=== PATIENT | male | born 1970 | race Caucasian/White ===

== ENCOUNTER 2017-06-20 00:17 | Emergency (ER) | payer BC, MEDICAID ==
[~2017-06-20] VITALS: Ht 172.7 cm; Wt 78.0 kg
[~2017-06-20 00:17] MED LIST: ACET500C5 PO; HYDR-3498 PO; IBUP800T25 PO
[2017-06-20 00:48] VITALS: Ht 172.7 cm; Wt 78.0 kg
[2017-06-20] MEDS ORDERED: morphine 4 MG/ML VIAL IV STA (01:29)
[2017-06-20] MEDS ORDERED: KETOROLAC 15 MG INJ IV STA (01:29)
[2017-06-20] MEDS ORDERED: ONDANSETRON 4 MG INJ IV STA (01:29)
[2017-06-20] MEDS ORDERED: SOD CHLORIDE 0.9% 1,000 ML IV STA (01:29)
--- NOTE | 2017-06-20 01:29 | ERD ---
ER Documentation Chief Complaint Chief Complaint BIB RA FROM HOME FOR BILATERAL FLANK PAIN, KIDNEY STONES BOTH SIDES (PRETTY,MOOK) HPI 47-year-old male patient presents to emergency department for bilateral flank pain , hx of kidney stones pt has had intermitted pain since 2014. pain 06/08 since yesterday (PRETTY,MOOK) ROS All systems reviewed and are negative except as per history of present illness. (PRETTY,MOOK) Medications Home Meds Active Scripts Hydrocodone/Acetaminophen (Reydon 5-325 Tablet) 1 Each Tablet, 1 TAB PO Q6H Y for PAIN, #7 TAB Prov:PRETTY,MOOK 06/20/17 Tramadol HCl (Tramadol HCl) 50 Mg Tablet, 50 MG PO Q8 Y for PAIN, #20 TAB Prov:PRETTY,MOOK 06/20/17 Metformin* (Glucophage*) 500 Mg Tab, 500 MG PO BID, #20 TAB Prov:PRETTY,MOOK 06/20/17 Acetaminophen* (Tylophen*) 500 Mg Capsule, 1 CAP PO Q6H Y for PAIN AND OR ELEVATED TEMP, #30 CAP Prov:SALTY SUMMERS-C 02/03/16 Ibuprofen* (Motrin*) 800 Mg Tab, 800 MG PO Q6, #30 TAB Prov:SALTY SUMMERS PA-C 16 Hydrocodone Bit-Acetaminophen* (Reydon*) 5-325 Mg Tab, 1 TAB PO Q6 Y for PAIN, # 10 TAB Prov:SALTY SUMMERS PA-C 02/03/16 Allergies Allergies: Coded Allergies: No Known Allergy (Verified Allergy, Unknown, 10/24/08) PMhx/Soc Medical and Surgical Hx: pt denies Medical Hx, pt denies Surgical Hx History of Surgery: No Anesthesia Reaction: No Hx Neurological Disorder: No Hx Respiratory Disorders: No Hx Cardiac Disorders: No Hx Psychiatric Problems: No Hx Miscellaneous Medical Probl: Yes (DM no meds does not check blood glucose) Hx Alcohol Use: No Hx Substance Use: No Hx Tobacco Use: Yes Smoking Status: Current every day smoker (PRETTY,MOOK) Physical Exam Vitals Vital Signs Date Time Temp Pulse Resp B/P Pulse Ox O2 Delivery O2 Flow Rate FiO2 06/20/17 00:48 98.5 100 18 138/77 100 (KENDELL WAGNER MD) Physical Exam Const: Well-nourished well-appearing well-hydrated 47-year-old male patient obvious discomfort no acute distress Head: Eyes: ENT: Normal External Ears, Nose and Mouth mucous membranes moist. Neck: Resp: Clear to auscultation bilaterally, no rales wheezes or rhonchi Cardio: Regular rate and rhythm, no murmurs Abd: Soft, non tender, non distended. Positive CVA tenderness Skin: Back: No midline or flank tenderness Ext: Neur: Awake and alert Psych: Normal Mood and Affect (PRETTY,MOOK) Result Diagram: 06/20/17 01506/20/17 015 Results 24 hrs Laboratory Tests Test 06/20/17 01:50 White Blood Count 7.710^3/ul Red Blood Count 4.5510^6/ul Hemoglobin 14.8g/dl Hematocrit 43.4% Mean Corpuscular Volume 95.4fl Mean Corpuscular Hemoglobin 32.5pg Mean Corpuscular Hemoglobin Concent 34.1g/dl Red Cell Distribution Width 12.1% Platelet Count 27004^3/UL Mean Platelet Volume 11.1fl Neutrophils % 43.2% Lymphocytes % 44.5% Monocytes % 6.4% Eosinophils % 5.3% Basophils % 0.5% Nucleated Red Blood Cells % 0.0/100WBC Neutrophils # 3.310^3/ul Lymphocytes # 3.410^3/ul Monocytes # 0.510^3/ul Eosinophils # 0.410^3/ul Basophils # 0.010^3/ul Nucleated Red Blood Cells # 0.010^3/ul Urine Color YELLOW Urine Clarity CLEAR Urine pH 5.0 Urine Specific [place] 1.033 Urine Ketones 1+mg/dL Urine Nitrite NEGATIVEmg/dL Urine Bilirubin NEGATIVEmg/dL Urine Urobilinogen 2+mg/dL Urine Leukocyte Esterase NEGATIVELeu/ul Urine Hemoglobin NEGATIVEmg/dL Urine Glucose 3+mg/dL Urine Total Protein NEGATIVEmg/dl Sodium Level 140mmol/L Potassium Level 3.7mmol/L Chloride Level 100mmol/L Carbon Dioxide Level 22mmol/L Anion Gap 22 Blood Urea Nitrogen 17mg/dl Creatinine 0.76mg/dl Glucose Level 244mg/dl Calcium Level 9.2mg/dl Total Bilirubin 0.1mg/dl Direct Bilirubin 0.00mg/dl Indirect Bilirubin 0.1mg/dl Aspartate Amino Transf (AST/SGOT) 79IU/L Alanine Aminotransferase (ALT/SGPT) 149IU/L Alkaline Phosphatase 115IU/L Total Protein 7.7g/dl Albumin 4.5g/dl Globulin 3.20g/dl Albumin/Globulin Ratio 1.40 Lipase 237U/L Current Medications Medications (Trade) Dose Ordered Sig/Odette Route PRN Reason Start Time Stop Time Status Last Admin Dose Admin Sodium Chloride (NS) 1,000 ml @ 1,000 mls/hr Q1H STAT IV 06/20/17 01:29 06/20/17 02:28 DC 06/20/17 01:50 Morphine Sulfate (morphine) 4 mg ONCE STAT IV 06/20/17 01:29 06/20/17 01:32 DC 06/20/17 01:49 Ondansetron HCl (Zofran Inj) 4 mg ONCE STAT IV 06/20/17 01:29 06/20/17 01:32 DC 06/20/17 01:49 Ketorolac Tromethamine (Toradol) 15 mg ONCE STAT IV 06/20/17 01:29 06/20/17 01:32 DC 06/20/17 01:49 Hydromorphone HCl (Dilaudid) 0.5 mg ONCE STAT IV 06/20/17 02:45 06/20/17 02:46 DC 06/20/17 02:48 (KENDELL WAGNER MD) Procedures/MDM PROCEDURE: CT of the abdomen and pelvis without contrast CLINICAL INDICATION: Flank pain. TECHNIQUE: Spiral CT images through the abdomen and pelvis without the use of oral and without the use of intravenous contrast. The administered radiation dose is CTDI 8.89 and DLP 554.73. One or more of the following dose reduction techniques were used: automated exposure control, adjustment of the mA and/or kV according to patient size, or use of iterative reconstruction technique. COMPARISON: 10/25/2008 FINDINGS: The study is limited by lack of intravenous contrast. Lower thorax: Slight dependent atalectasis of the lung bases is seen.. Liver: The liver is unremarkable in appearance. Biliary: The gallbladder is unremarkable.. No biliary ductal dilatation is seen. Pancreas: Unremarkable. No focal mass or inflammatory process. Spleen: The spleen is unremarkable in appearance Adrenal glands: Unremarkable in appearance. No focal nodule.. Genitourinary: There are multiple 1-2 mm nonobstructing bilateral renal calyceal stones. No hydronephrosis is seen. No definite ureter or bladder stones.. The bladder is unremarkable in appearance.. Gastrointestinal Tract: There is no evidence for bowel obstruction, free air, or abscess. The appendix is unremarkable in appearance. Moderate stool burden. Lymph nodes: Small low-density lymph nodes are seen in the periportal region.. Vascular structures: Slight aortic and coronary artery calcification.. Peritoneal cavity: Unremarkable mesentery and peritoneum.. No mass, edema, or ascites. Reproductive Organs: Unremarkable in appearance.. Musculoskeletal: There is mild degenerative change of the spine. IMPRESSION: Small nonobstructing bilateral renal stones. No definite ureter or bladder stones.. Ewa Oliveira, Physician Date Time This 47-year-old male patient presents to emergency room for evaluation of bilateral flank pain, patient has history of bilateral kidney stones since 2014 , usually pain is controlled with conservative measures, patient reports pain is been 10 out of 10 for the last 24 hours. Denies nausea or vomiting, reports change in urine stream, denies hematuria, fever or chills. Emergency room course includes history and physical exam positive for CVA tenderness, suspected change in nephrolithiasis. Patient treated with serology, no evidence of infection or acute blood loss, no evidence of renal insufficiency. Glucose abnormal nonfasting at 244. Urinalysis negative for evidence of leukocytosis or nitrates, positive for +3 glucose, patient given a liter of normal saline, 15 mg of Toradol with sub-adequate pain control 0.5 mg of Dilaudid given. Patient reports improvement of symptoms, patient given Zofran for nausea, and CT of abdomen and pelvis for flank pain with radiologist's impression of small nonobstructing bilateral renal stones no definite urinary or or bladder stone. Plan to discharge patient home with pain control, elevated blood sugar discussed with supervising physician Dr. Wagner patient has no primary care physician plan to start metformin 500 mg twice daily, tramadol 50 mg 3 times daily as needed pain. Reydon 5/325 count of 7, increase fluids, increase rest, diabetic teaching information provided and handout along with primary care physicians. Schedule appointment as soon as possible, return to emergency department if symptoms fail to improve as anticipated, pain not improving with treatment. Patient is stable with no new complaints during ER course, clinically there is no current evidence to suggest meningitis, sepsis, acute abdomen, hydronephrosis, acute coronary syndromes, DKA or any other emergent condition appearing to require further evaluation or hospitalization. I feel the patient is stable for discharge at this time. I have discussed results, examination findings, the treatment plan with the patient and family present prior to discharge. Indications for emergent reevaluation, side effects of medication were also discussed. All questions were answered. Patient verbalizes understanding and agrees with plan of care. (MOOK OLSEN) Attending addendum: I was consulted on this patient regarding appropriateness of starting metformin in patient with a glucose of 244, which I believe is appropriate. I was also asked to consult regarding significance of small pericardial effusion in a patient with abdominal pain, which I believe is likely unrelated and does not require further inpatient workup. This can be followed up as an outpatient. I was not asked to evaluate the patient with regards to their primary complaint. (KENDELL WAGNER MD) Departure Diagnosis: Primary Impression: Bilateral nephrolithiasis Additional Impression: Hyperglycemia Condition: Good Patient Instructions: Hyperglycemia (High Blood Sugar), Kidney Stone, Undescended (No Symptoms) Additional Instructions: Thank you for for coming to [facility] for your care today. Please ask your nurse or provider if you have questions about your care today and do not leave until all your questions have been answered. Please use any medications given as directed and follow-up with your doctor (or the doctor you were referred to) in the next 2-3 days. If you do not have a primary care doctor you may follow up at the [facility] (listed below). You may also use motrin and tylenol as needed for fever and/or pain unless instructed otherwise by your provider or nurse. Indications for more urgent follow-up have been discussed, but you may return to the Emergency Department at ANY time for any worrisome or worsening symptoms. If you have abdominal pain, please know that no test or exam you received is perfect and you should follow up within 8 hours for continued pain. If you had any imaging studies today, such as an X-Ray or CT Scan, these studies will be reviewed later by a radiologist. You will be called if there are important findings that were not identified today, so make sure the contact information you provided at registration is correct. If you received any narcotic pain control medicine today, such as Vicodin, Morphine or Dilaudid, your coordination and judgment may be affected for a number of hours. Please do not drive or operate heavy machinery, and you may want someone to assist you at home. If you were given a prescription for narcotic medication, be aware that it is very addictive- use sparingly and only if necessary. MOOK OLSEN Jun 20, 2017 01:29 KENDELL WAGNER MD Jun 20, 2017 06:04
[2017-06-20 02:14] LABS: BASOPHILS % 0.5 % (0.0-2.0); EOSINOPHILS # 0.4 10^3/ul (0.0-0.5); EOSINOPHILS % 5.3 % (0.0-7.0); HEMATOCRIT 43.4 % (42.0-52.0); HEMOGLOBIN 14.8 g/dl (14.0-18.0); LYMPHOCYTES # 3.4 10^3/ul (0.8-2.9); LYMPHOCYTES % 44.5 % (15.0-51.0); MEAN CORPUSCULAR HEMOGLOBIN 32.5 pg (29.0-33.0); MEAN CORPUSCULAR HGB CONC 34.1 g/dl (32.0-37.0); MEAN CORPUSCULAR VOLUME 95.4 fl (82.0-101.0); MEAN PLATELET VOLUME 11.1 fl (7.4-10.4); MONOCYTE # 0.5 10^3/ul (0.3-0.9); MONOCYTES % 6.4 % (0.0-11.0); NEUTROPHIL # 3.3 10^3/ul (1.6-7.5); NEUTROPHILS % 43.2 % (39.0-77.0); PLATELET COUNT 134 10^3/UL (140-415); POSITIVE DIFF @See below; RED BLOOD COUNT 4.55 10^6/ul (4.70-6.10); RED CELL DISTRIBUTION WIDTH 12.1 % (11.5-14.5); WHITE BLOOD COUNT 7.7 10^3/ul (4.8-10.8)
[2017-06-20 02:20] LABS: ADD UMIC NO; UR ASCORBIC ACID NEGATIVE (NEGATIVE); UR BILIRUBIN (Dip) NEGATIVE (NEGATIVE); UR BLOOD (Dip) NEGATIVE (NEGATIVE); UR CLARITY CLEAR (CLEAR); UR COLOR YELLOW (YELLOW); UR GLUCOSE (Dip) 3+ mg/dL (NEGATIVE); UR KETONES (Dip) 1+ mg/dL (NEGATIVE); UR LEUKOCYTE ESTERASE (Dip) NEGATIVE Leu/ul (NEGATIVE); UR NITRITE (Dip) NEGATIVE (NEGATIVE); UR SPECIFIC GRAVITY (Dip) 1.033 (1.003-1.030); UR TOTAL PROTEIN (Dip) NEGATIVE (NEGATIVE); UR UROBILINOGEN (Dip) 2+ mg/dL (NEGATIVE)
--- NOTE | 2017-06-20 02:41 | RADRPT ---
PROCEDURE: CT of the abdomen and pelvis without contrast CLINICAL INDICATION: Flank pain. TECHNIQUE: Spiral CT images through the abdomen and pelvis without the use of oral and without the use of intravenous contrast. The administered radiation dose is CTDI 8.89 and DLP 554.73. One or m ore of the following dose reduction techniques were used: automated exposure control, adjustment of the mA and/or kV according to patient size, or use of iterative reconstruction technique. COMPARISON: 10/25/2008 FINDINGS: The study is limited by lack of intravenous contrast. Lower thorax: Slight dependent atalectasis of the lung bases is seen.. Liver: The liver is unremarkable in appearance. Biliary: The gallbladder is unremarkable.. No biliary ductal dilatation is seen. Pancreas: Unremarkable. No focal mass or inflammatory process. Spleen: The spleen is unremarkable in appearance Adrenal glands: Unremarkable in appearance. No focal nodule.. Genitourinary: There are multiple 1-2 mm nonobstructing bilateral renal calyceal stones. No hydronep hrosis is seen. No definite ureter or bladder stones.. The bladder is unremarkable in appearance.. Gastrointestinal Tract: There is no evidence for bowel obstruction, free air, or abscess. The appen skye is unremarkable in appearance. Moderate stool burden. Lymph nodes: Small low-density lymph nodes are seen in the periportal region.. Vascular structures: Slight aortic and coronary artery calcification.. Peritoneal cavity: Unremarkable mesentery and peritoneum.. No mass, edema, or ascites. Reproductive Organs: Unremarkable in appearance.. Musculoskeletal: There is mild degenerative change of the spine. IMPRESSION: Small nonobstructing bilateral renal stones. No definite ureter or bladder stones.. RPTAT: [facility] Physician Ovidio Date Time Electronically viewed and signed by Physician Ovidio on 06/20/2017 02:41 EDDY/
[2017-06-20 02:43] LABS: ALBUMIN 4.5 g/dl (3.3-4.9); ALBUMIN/GLOBULIN RATIO 1.4; BILIRUBIN,INDIRECT 0.1 mg/dl (0-1.1); BILIRUBIN,TOTAL 0.1 mg/dl (0.2-1.3); CALCIUM 9.2 mg/dl (8.4-10.2); CREATININE 0.76 mg/dl (0.61-1.24); POTASSIUM 3.7 mmol/L (3.5-5.1); TOTAL PROTEIN 7.7 g/dl (6.1-8.1)
[2017-06-20] MEDS ORDERED: HYDROmorphONE 0.5 MG/0.5 ML SYG IV STA (02:45)
[2017-06-20] MEDS ORDERED: METF500T4 PO (03:21)
[2017-06-20] MEDS ORDERED: TRAM50TA2 PO (03:21)
[2017-06-20] MEDS ORDERED: HYDR-906 PO (03:21)
== END 2017-06-20 03:32 | disposition home or self-care (01) ==
LOC: FTE 00:17
DX: N20.0 Calculus of kidney (principal); E11.65 Type 2 diabetes mellitus with hyperglycemia; F17.210 Nicotine dependence, cigarettes, uncomplicated; Z79.84 Long term (current) use of oral hypoglycemic drugs
CPT/HCPCS: 36415; 74176; 80053; 81003; 83690; 85025; 96374; 96375; 99285; J1885; J2270; J2405; J7030

== ENCOUNTER 2019-07-05 19:08 | Emergency (ER) | payer BC ==
[~2019-07-05] VITALS: Ht 177.8 cm; Wt 67.4 kg
[~2019-07-05 19:08] MED LIST changes: +HYDR-4011 PO; -IBUP800T25 PO; +IBUP800T48 PO; +METF-849 PO; +TAMS-14 PO; +TRAM50TA2 PO
[2019-07-05 19:24] VITALS: Ht 177.8 cm; Wt 67.4 kg
[2019-07-05] MEDS ORDERED: KETOROLAC 15 MG INJ IV STA (22:45)
[2019-07-05] MEDS ORDERED: SOD CHLORIDE 0.9% 1,000 ML IV ONE (23:00)
[2019-07-06 00:47] VITALS: BP 171/102; PULSE 99; RESP 12
== END 2019-07-06 01:00 | disposition home or self-care (01) ==
LOC: E/R 19:08
DX: N20.0 Calculus of kidney (principal); E11.9 Type 2 diabetes mellitus without complications; R16.0 Hepatomegaly, not elsewhere classified; Z79.84 Long term (current) use of oral hypoglycemic drugs; Z87.891 Personal history of nicotine dependence
CPT/HCPCS: 74176; 80053; 81003; 83690; 84703; 85025; 96361; 96374; 99285; J1885; J7030